=== PATIENT | female | born 1980 | race Caucasian/White ===

== ENCOUNTER 2022-03-20 21:46 | Emergency (ER) | payer OTHER ==
[2022-03-20] MEDS ORDERED: Reglan 10 MG/2 ML IV ONE (22:04)
[2022-03-20] MEDS ORDERED: TORAdol 30 mg Injection IV ONE (22:04)
[2022-03-20] MEDS ORDERED: Sodium Chloride 0.9% 1000 ML 1,000 ML IV STA (22:04)
[2022-03-20] MEDS ORDERED: Hydromorphone 1 mg/ml Injection IV ONE (22:04)
[2022-03-20] MEDS ORDERED: TORAdol 30 mg Injection ONE (22:07)
[2022-03-20] MEDS ORDERED: Sodium Chloride 0.9% 1000 ML 1,000 ML ONE (22:08)
[2022-03-20] MEDS ORDERED: Hydromorphone 1 mg/ml Injection ONE (22:08)
[2022-03-20] MEDS ORDERED: Reglan 10 MG/2 ML ONE (22:08)
[2022-03-20 22:15] LABS: Absolute Neutrophil Ct (ANC) 3.14 x10^3/uL (1.4-6.9); Basophil (Absolute #) 0.06 x10^3/uL (0-0.4); Eosinophil (Absolute #) 0.19 x10^3/uL (0-0.5); Hematocrit 39.4 % (35-47); Hemoglobin 12.8 g/dL (12.0-16.0); IMMATURE GRAN # 0.02 x10^3u/L (0.00-0.03); IMMATURE GRAN % 0.3 % (0.00-0.4); Lymphocyte (Absolute #) 2.51 x10^3/uL (1.0-4.6); Lymphocytes % 39.8 % (24.0-44.0); Mean Corpuscular Hemoglobin 29.2 pg (26-32); Mean Corpuscular Hgb Concent. 32.5 g/dL (32-36); Mean Platelet Volume 11.5 fL (7.5-11.0); Monocyte (Absolute #) 0.39 x10^3/uL (0.0-1.3); Monocytes % 6.2 % (0.0-12.0); Neutrophil % 49.7 % (36.0-66.0); Platelet Count 219 x10^3/uL (150-450); Red Blood Count 4.38 x10^6/uL (4.1-5.4); Red Cell Distribution Width 13.4 % (11.5-14.0); White Blood Count 6.3 x10^3/uL (4.0-10.5)
[2022-03-20 22:28] LABS: ALBUMIN 4.1 g/dL (3.5-5.0); ALKALINE PHOSPHATASE 68 U/L (38-126); AMYLASE 70 U/L (30-110); ANION GAP 10.8 MEQ/L (5-15); BLOOD UREA NITROGEN 13 mg/dL (7-17); CHLORIDE 105 mmol/L (98-107); Calcium 8.9 mg/dL (8.4-10.2); Carbon Dioxide 27 mmol/L (22-30); Creatinine 1 0.79 mg/dL (0.52-1.04); EST GLOMERULAR FILTRATION RATE > 60.0 ML/MIN; Glucose 136 mg/dL (74-106); LIPASE 194 U/L (23-300); Potassium 4.3 mmol/L (3.5-5.1); SGOT/AST 19 U/L (14-36); SGPT/ALT 18 U/L (0-35); SODIUM 138 mmol/L (137-145)
[2022-03-20 22:39] LABS: Appearance Clear (Clear); Bilirubin Negative (Negative); Blood Moderate (Negative); Epithelial Cells Rare /HPF (None Seen); Glucose, Urine 100 mg/dL (Negative); Hyaline Casts NONE SEEN /LPF (0-2); Ketones Negative (Negative); Leukocyte Esterase Negative (Negative); Nitrite Negative (Negative); Ph 6.5 (4.6-8.0); Protein,Urine Dip Negative (Negative); RBC 0-2 /HPF (0-5); Urobilinogen 0.2 mg/dL (0.2); WBC 0-2 /HPF (0-5)
[2022-03-20 22:40] LABS: ADD URINE CULTURE? NO (NO); Bacteria Rare /HPF (None Seen)
[2022-03-20 23:09] VITALS: BP 118/62; PULSE 56; O2SAT 94
--- NOTE | 2022-03-20 23:19 | ERPHSYRPT ---
- History of Present Illness Time Seen by Provider: 03/20/22 21:50 Historian: patient Exam Limitations: no limitations Patient Subjective Stated Complaint: pt arrived with [facility]power development [facility], pt states she began to have abdominal pain today at 1200. states pain is consistant in her lower right abdominal area and radiates to her back Triage Nursing Assessment: pt alert and oriented. laying in bed. holding right side of abdomen. Physician History: Patient is a 41-year-old white female inmate of the local [facility] who presents with a complaint of right lower quadrant pain which radiates from the right flank which has been present since 11:00 today or approximately 12 hours. She has had a previous appendectomy and cholecystectomy she also has a history of renal stones in the past. Timing/Duration: today Activities at Onset: none Quality: cramping, stabbing Abdominal Pain Onset Location: flank (Right) Pain Radiation: RLQ Severity of Pain-Max: severe Severity of Pain-Current: moderate Modifying Factors: Improves With: nothing Previous symptoms: same symptoms as today Allergies/Adverse Reactions: No Known Drug Allergies Allergy (Unverified 03/20/22 22:02) Immunizations Up to Date: Yes Travel Risk - International Travel Have you traveled outside of the country in past 3 weeks: No - Coronavirus Screening Are you exhibiting any of the following symptoms?: No Close contact with a COVID-19 positive Pt in past 14-21 Days: No - Vaccine Status Have you recieved a Covid-19 vaccination: No - Review of Systems Constitutional: No Fever, No Chills Eyes: No Symptoms Ears, Nose, & Throat: No Symptoms Respiratory: No Cough, No Dyspnea Cardiac: No Chest Pain, No Edema, No Syncope Abdominal/Gastrointestinal: No Abdominal Pain, No Nausea, No Vomiting, No Diarrhea Genitourinary Symptoms: Flank Pain, No Dysuria Musculoskeletal: No Back Pain, No Neck Pain Skin: No Rash Neurological: No Dizziness, No Focal Weakness, No Sensory Changes Psychological: No Symptoms Endocrine: No Symptoms All Other Systems: Reviewed and Negative - Past Medical History Pertinent Past Medical History: Yes Endocrine Medical History: Diabetes Type II GI Medical History: Diverticulitis, Gallbladder Disease Other Medical History: kidney stones - Past Surgical History Past Surgical History: Yes Gastrointestinal: Appendectomy, Cholecystectomy Other Surgical History: mirena placed, x2 - Social History Smoking Status: Light tobacco smoker Drug Use: none - Female History Hx Last Menstrual Period: unknown Hx Now: No - Nursing Vital Signs Nursing Vital Signs: Initial Vital Signs Pulse Rate 78 03/20/22 21:47 Respiratory Rate 18 03/20/22 21:47 Blood Pressure 156/86 03/20/22 21:47 O2 Sat by Pulse Oximetry 96 03/20/22 21:47 Pain Scale Pain Intensity 3 - Physical Exam General Appearance: no apparent distress, alert Eye Exam: PERRL/EOMI, eyes nml inspection Ears, Nose, Throat Exam: normal ENT inspection, pharynx normal, moist mucous membranes Neck Exam: normal inspection, non-tender, supple, full range of motion Respiratory Exam: normal breath sounds, lungs clear, No respiratory distress Cardiovascular Exam: regular rate/rhythm, normal heart sounds Gastrointestinal/Abdomen Exam: soft, No tenderness, No mass Back Exam: normal inspection, normal range of motion, CVA tenderness (Right CVA tenderness), No vertebral tenderness Extremity Exam: normal inspection, normal range of motion, pelvis stable Neurologic Exam: alert, oriented x 3, cooperative, normal mood/affect, nml cerebellar function, sensation nml, No motor deficits Skin Exam: normal color, warm, dry SpO2: 94 - Course Nursing assessment & vital signs reviewed: Yes - CT Exams Abdomen/Pelvis CT Interpretation: Negative Ordered Tests: Active Orders 24 hr Category Date Time Status IV Insertion STAT Care 03/20/22 22:04 Ordered ABDOMEN AND PELVIS W/0 CONTRAS [CT] Stat Exams 03/20/22 22:10 Taken AMYLASE Stat Lab 03/20/22 22:04 Ordered CBC W DIFF Stat Lab 03/20/22 22:04 Ordered CMP Stat Lab 03/20/22 22:04 Ordered HCG,QUALITATIVE URINE Stat Lab 03/20/22 22:06 Completed LIPASE Stat Lab 03/20/22 22:04 Ordered Lactic Acid Stat Lab 03/20/22 22:04 Ordered UA W/RFX UR CULTURE Stat Lab 03/20/22 22:04 Ordered Medication Summary Discontinued Medications Generic Name Dose Route Start Last Admin Trade Name Freq PRN Reason Stop Dose Admin Hydromorphone HCl 1 mg 03/20/22 22:04 03/20/22 22:12 Hydromorphone 1 Mg/1ml Inj 1 Mg/Ml Syringe IV 03/20/22 22:05 1 mg STAT ONE Administration Hydromorphone HCl Confirm 03/20/22 22:08 Hydromorphone 1 Mg/1ml Inj 1 Mg/Ml Syringe Administered 03/20/22 22:09 Dose 1 mg .ROUTE .STK-MED ONE Sodium Chloride 1,000 mls @ 999 mls/hr 03/20/22 22:04 03/20/22 22:11 Sodium Chloride 0.9% 1000 Ml IV 03/20/22 23:04 999 mls/hr .Q1H1M STA Administration Sodium Chloride Confirm 03/20/22 22:08 Sodium Chloride 0.9% 1000 Ml Administered 03/20/22 22:09 Dose 1,000 mls @ ud .ROUTE .STK-MED ONE Ketorolac Tromethamine 30 mg 03/20/22 22:04 03/20/22 22:11 Ketorolac Tromethamine 30 Mg/Ml Inj IV 03/20/22 22:05 30 mg STAT ONE Administration Ketorolac Tromethamine Confirm 03/20/22 22:07 Ketorolac Tromethamine 30 Mg/Ml Inj Administered 03/20/22 22:08 Dose 30 mg .ROUTE .STK-MED ONE Metoclopramide HCl 10 mg 03/20/22 22:04 03/20/22 22:11 Metoclopramide Hcl 10 Mg/2 Ml Vial IV 03/20/22 22:05 10 mg STAT ONE Administration Metoclopramide HCl Confirm 03/20/22 22:08 Metoclopramide Hcl 10 Mg/2 Ml Vial Administered 03/20/22 22:09 Dose 10 mg .ROUTE .STK-MED ONE Lab/Rad Data: Laboratory Result Diagrams 03/20/22 22:10 03/20/22 22:10 Laboratory Results 03/20/22 03/20/22 03/20/22 Range/Units 22:24 22:10 22:10 WBC 6.3 (4.0-10.5) x10^3/uL RBC 4.38 (4.1-5.4) x10^6/uL Hgb 12.8 (12.0-16.0) g/dL Hct 39.4 (35-47) % MCV 90.0 (78-100) fL MCH 29.2 (26-32) pg MCHC 32.5 (32-36) g/dL RDW 13.4 (11.5-14.0) % Plt Count 219 (150-450) x10^3/uL MPV 11.5 H (7.5-11.0) fL Gran % 49.7 (36.0-66.0) % Immature Gran % (Auto) 0.3 (0.00-0.4) % Nucleat RBC Rel Count 0.0 (0.00-0.1) % Eos # (Auto) 0.19 (0-0.5) x10^3/uL Immature Gran # (Auto) 0.02 (0.00-0.03) x10^3u/L Absolute Lymphs (auto) 2.51 (1.0-4.6) x10^3/uL Absolute Monos (auto) 0.39 (0.0-1.3) x10^3/uL Absolute Nucleated RBC 0.00 (0.00-0.01) x10^3u/L Lymphocytes % 39.8 (24.0-44.0) % Monocytes % 6.2 (0.0-12.0) % Eosinophils % 3.0 (0.00-5.0) % Basophils % 1.0 (0.0-0.4) % Absolute Granulocytes 3.14 (1.4-6.9) x10^3/uL Basophils # 0.06 (0-0.4) x10^3/uL Sodium 138 (137-145) mmol/L Potassium 4.3 (3.5-5.1) mmol/L Chloride 105 (98-107) mmol/L Carbon Dioxide 27 (22-30) mmol/L Anion Gap 10.8 (5-15) MEQ/L BUN 13 (7-17) mg/dL Creatinine 0.79 (0.52-1.04) mg/dL Estimated GFR > 60.0 ML/MIN Glucose 136 H (74-106) mg/dL Lactic Acid 1.2 (0.4-2.0) Calcium 8.9 (8.4-10.2) mg/dL Total Bilirubin 0.20 (0.2-1.3) mg/dL AST 19 (14-36) U/L ALT 18 (0-35) U/L Alkaline Phosphatase 68 (38-126) U/L Serum Total Protein 7.0 (6.3-8.2) g/dL Albumin 4.1 (3.5-5.0) g/dL Amylase 70 (30-110) U/L Lipase 194 (23-300) U/L Urine Color (Yellow) Urine Appearance (Clear) Urine pH (4.6-8.0) Ur Specific Fork (1.005-1.030) Urine Protein (Negative) Urine Glucose (UA) (Negative) mg/dL Urine Ketones (Negative) Urine Blood (Negative) Urine Nitrite (Negative) Urine Bilirubin (Negative) Urine Urobilinogen (0.2) mg/dL Ur Leukocyte Esterase (Negative) U Hyaline Cast (Auto) (0-2) /LPF Urine Microscopic RBC (0-5) /HPF Urine Microscopic WBC (0-5) /HPF Ur Epithelial Cells (None Seen) /HPF Urine Bacteria (None Seen) /HPF Urine Culture Reflexed (NO) Urine HCG, Qual (Negative) 03/20/22 03/20/22 Range/Units 22:06 22:06 WBC (4.0-10.5) x10^3/uL RBC (4.1-5.4) x10^6/uL Hgb (12.0-16.0) g/dL Hct (35-47) % MCV (78-100) fL MCH (26-32) pg MCHC (32-36) g/dL RDW (11.5-14.0) % Plt Count (150-450) x10^3/uL MPV (7.5-11.0) fL Gran % (36.0-66.0) % Immature Gran % (Auto) (0.00-0.4) % Nucleat RBC Rel Count (0.00-0.1) % Eos # (Auto) (0-0.5) x10^3/uL Immature Gran # (Auto) (0.00-0.03) x10^3u/L Absolute Lymphs (auto) (1.0-4.6) x10^3/uL Absolute Monos (auto) (0.0-1.3) x10^3/uL Absolute Nucleated RBC (0.00-0.01) x10^3u/L Lymphocytes % (24.0-44.0) % Monocytes % (0.0-12.0) % Eosinophils % (0.00-5.0) % Basophils % (0.0-0.4) % Absolute Granulocytes (1.4-6.9) x10^3/uL Basophils # (0-0.4) x10^3/uL Sodium (137-145) mmol/L Potassium (3.5-5.1) mmol/L Chloride (98-107) mmol/L Carbon Dioxide (22-30) mmol/L Anion Gap (5-15) MEQ/L BUN (7-17) mg/dL Creatinine (0.52-1.04) mg/dL Estimated GFR ML/MIN Glucose (74-106) mg/dL Lactic Acid (0.4-2.0) Calcium (8.4-10.2) mg/dL Total Bilirubin (0.2-1.3) mg/dL AST (14-36) U/L ALT (0-35) U/L Alkaline Phosphatase (38-126) U/L Serum Total Protein (6.3-8.2) g/dL Albumin (3.5-5.0) g/dL Amylase (30-110) U/L Lipase (23-300) U/L Urine Color Yellow (Yellow) Urine Appearance Clear (Clear) Urine pH 6.5 (4.6-8.0) Ur Specific Fork 1.020 (1.005-1.030) Urine Protein Negative (Negative) Urine Glucose (UA) 100 A (Negative) mg/dL Urine Ketones Negative (Negative) Urine Blood Moderate A (Negative) Urine Nitrite Negative (Negative) Urine Bilirubin Negative (Negative) Urine Urobilinogen 0.2 (0.2) mg/dL Ur Leukocyte Esterase Negative (Negative) U Hyaline Cast (Auto) NONE SEEN (0-2) /LPF Urine Microscopic RBC 0-2 (0-5) /HPF Urine Microscopic WBC 0-2 (0-5) /HPF Ur Epithelial Cells Rare (None Seen) /HPF Urine Bacteria Rare A (None Seen) /HPF Urine Culture Reflexed NO (NO) Urine HCG, Qual NEGATIVE (Negative) - Progress Progress: unchanged - Departure Departure Disposition: Shelter/Senior Living Clinical Impression: Renal colic Condition: Stable Critical Care Time: No Referrals: MARIEL LERMA [Primary Care Provider] - Follow up/PCP as directed Instructions: Renal Colic (DC) Prescriptions: Tamsulosin HCl 0.4 mg [Flomax 0.4 MG] 0.4 mg PO DAILY 3 Days #3 cap
[2022-03-20] MEDS ORDERED: Flomax 0.4 MG ONE (23:21)
--- NOTE | 2022-03-21 08:16 | XRAY ---
Indication: Right lower quadrant/pelvic pain. Multiple contiguous axial images obtained through the abdomen and pelvis without contrast. Comparison: None Lung bases demonstrates minimal fibrosis/scarring. Heart not enlarged. Stomach distended with food/fluid. Stomach and bowel loops appear nonobstructed. There is mild diffuse scattered colonic fecal debris throughout and scattered descending/sigmoid diverticulosis without diverticulitis. Previous appendectomy and cholecystectomy. Uterus demonstrates IUD in situ. No free fluid/air. 14 cm splenomegaly. Remaining liver, pancreas, spleen, adrenal glands, kidneys, ureters, bladder, uterus, and aorta are unremarkable for noncontrast exam. Osseous structures intact with minimal/mild degenerative changes throughout thoracolumbar spine and minimal dextroscoliosis. No ventral or inguinal hernias. Impression: 1. Mild diffuse fecal stasis, colonic diverticulosis, splenomegaly, and chronic bony findings. 2. Remaining CT abdomen/pelvis without contrast exam is negative. Comment: Preliminary interpretation made by C. No critical discrepancy.
[2022-03-21] MEDS ORDERED: Flomax 0.4 MG PO SCH (10:00)
== END 2022-03-20 23:29 | disposition home or self-care (01) ==
LOC: ED 21:46 → EEVIPCON 21:46 → ED 23:29
DX: N23 Unspecified renal colic (principal); Z87.442 Personal history of urinary calculi; E11.9 Type 2 diabetes mellitus without complications; Z28.310 Unvaccinated for COVID-19; Z72.0 Tobacco use
CPT/HCPCS: 36000; 36415; 74176; 80053; 81001; 81025; 82150; 83605; 83690; 85025; 96374; 96375; 99284; J1170; J1885; A9270-GY